=== PATIENT | female | born 1955 | race Caucasian/White ===

== ENCOUNTER 2019-03-07 15:34 | Emergency (ER) | payer OTHER ==
[2019-03-07] MEDS ORDERED: HYDROCODONE/ACETAMINOPHEN 5-325 MG TABLET PO ONE (15:51)
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
[2019-03-07 17:19] VITALS: BP 116/74
== END 2019-03-07 17:19 | disposition home or self-care (01) ==
LOC: ER 15:34
DX: S16.1XXA Strain of muscle, fascia and tendon at neck level, initial encounter (principal); V89.2XXA Person injured in unspecified motor-vehicle accident, traffic, initial encounter; Z88.6 Allergy status to analgesic agent
CPT/HCPCS: 72125; 99284